=== PATIENT | female | born 1985 ===

== ENCOUNTER 2017-06-17 21:23 | Emergency (ER) | payer SELFPAY ==
[2017-06-17 21:23] VITALS: BMI 34.0
[2017-06-17 21:42] VITALS: RESP 16
[2017-06-18] MEDS ORDERED: Sodium Chloride 0.9% 1,000 ML IV STA (01:11)
--- NOTE | 2017-06-18 01:15 | ED PDOC ---
HPI: General Adult Time Seen by Provider: 06/18/17 00:47 Chief Complaint (Nursing): Flu-like Symptoms Chief Complaint (Provider): fever History Per: Patient History/Exam Limitations: no limitations Onset/Duration Of Symptoms: Days (2) Current Symptoms Are (Timing): Still Present Additional History Per: Patient Additional Complaint(s): 31 y/o female presents with fever x 2 days. Associated bodyaches, nasal congestion, cough. Patient also reports chest pain x 1 week. Denies ear pain, vomiting, shortness of breath, palpitations, abdominal pain, changes in bowel movements, urinary symptoms. Past Medical History Reviewed: Historical Data, Nursing Documentation, Vital Signs Vital Signs: Last Vital Signs Temp 101.7 F H 06/17/17 21:38 Pulse 99 H 06/18/17 03:53 Resp 16 06/18/17 03:15 BP 122/71 06/18/17 03:53 Pulse Ox 100 06/18/17 03:15 - Medical History PMH: [place]'s Disease - Family History Family History: States: No Known Family Hx - Home Medications Home Medications: Ambulatory Orders Medication Instructions Recorded Ondansetron ODT [Zofran ODT] 4 mg PO Q8 PRN #12 odt 02/04/14 Vit37/Iron/Folic Acid 1 PO DAILY 08/24/14 [Pnv Vitamins] Ibuprofen [Motrin Tab] 1 tab PO Q6 PRN #20 tab 06/18/17 Penicillin VK [Penicillin VK Tab] 500 mg PO BID #19 tab 06/18/17 - Allergies Allergies/Adverse Reactions: Allergies Allergy/AdvReac Type Severity Reaction Status Date / Time No Known Allergies Allergy Verified 02/04/14 10:15 Review of Systems ROS Statement: Except As Marked, All Systems Reviewed And Found Negative Constitutional: Positive for: Fever, Chills ENT: Positive for: Nose Congestion Cardiovascular: Positive for: Chest Pain Respiratory: Positive for: Cough Physical Exam - Reviewed Nursing Documentation Reviewed: Yes Vital Signs Reviewed: Yes - Physical Exam Appears: Positive for: Well, Non-toxic, No Acute Distress Head Exam: Positive for: ATRAUMATIC, NORMAL INSPECTION, NORMOCEPHALIC Skin: Positive for: Normal Color Eye Exam: Positive for: Normal appearance ENT: Positive for: Nasal Congestion, Pharyngeal Erythema, Tonsillar Exudate Cardiovascular/Chest: Positive for: Regular Rate, Rhythm Respiratory: Positive for: Normal Breath Sounds Gastrointestinal/Abdominal: Positive for: Normal Exam Back: Positive for: Normal Inspection Extremity: Positive for: Normal ROM Neurologic/Psych: Positive for: Alert, Oriented - Laboratory Results Result Diagrams: 06/18/17 01:28 06/18/17 01:28 - ECG ECG: Positive for: Viewed By Me (reviewed by ED attednging) ECG Rhythm: Positive for: Sinus Tachycardia O2 Sat by Pulse Oximetry: 98 - Radiology X-Ray: Viewed By Me X-Ray Interpretation: No Acute Disease - Progress ED Course And Treament: labs, flu, strep, chest xray, IV fluids, IV toradol On re-eval, patient states she is feeling better. Patient educated on findings, discharged with rx Penicillin VK (dose given in ED ), ibuprofen Follow up PMD 2-3 days. Return precautions given Disposition - Clinical Impression Clinical Impression: Strep throat, Atypical chest pain - Patient ED Disposition Is Patient to be Admitted: No Counseled Patient/Family Regarding: Studies Performed, Diagnosis, Need For Followup, Rx Given - Disposition Referrals: [facility] [Outside] Disposition: Routine/Home Disposition Time: 03:59 Condition: IMPROVED Prescriptions: Ibuprofen [Motrin Tab] 1 tab PO Q6 PRN #20 tab PRN Reason: Fever >100.4 F Penicillin VK [Penicillin VK Tab] 500 mg PO BID #19 tab Instructions: Chest Pain (ED), Strep Throat (ED) Forms: [employer] ([place]) Print Language: ENGLISH
[2017-06-18 01:31] LABS: BASO # 0.1 K/uL (0.0-0.2); BASO % 0.9 % (0.0-2.0); EOS % 0.1 % (0.0-4.0); HEMOGLOBIN 13.7 g/dL (12.0-16.0); LYMPH # 2.2 K/uL (1.0-4.3); LYMPH % 15.9 % (20.0-40.0); MEAN CELL VOLUME 82.4 fl (81.0-99.0); MEAN CORPUSCULAR HEMOGLOBIN 26.8 pg (27.0-31.0); MEAN CORPUSCULAR HGB CONC 32.5 g/dL (33.0-37.0); MEAN PLATELET VOLUME 9.3 fl (7.2-11.7); MONO # 0.8 K/uL (0.0-0.8); MONO % 5.8 % (0.0-10.0); NEUT # 10.5 K/uL (1.8-7.0); NEUT % 77.3 % (50.0-75.0); RBC 5.13 Mil/uL (3.80-5.20); RED CELL DISTRIBUTION WIDTH 14.4 % (11.5-14.5); WHITE BLOOD COUNT 13.5 K/uL (4.8-10.8)
[2017-06-18 01:39] LABS: ALB/GLOB RATIO 1.2 (1.0-2.1); ALBUMIN 4.7 g/dL (3.5-5.0); CALCIUM 9.3 mg/dL (8.4-10.2); GFR AFRICAN-AMERICAN > 60; GFR NON-AFRICAN AMERICAN > 60
[2017-06-18 01:40] LABS: ALT/SGPT 25 U/L (9-52); AST/SGOT 24 U/L (14-36); BLOOD UREA NITROGEN 9 mg/dl (7-17)
[2017-06-18 03:53] VITALS: BP 122/71; PULSE 99
[2017-06-18 03:58] VITALS: TEMP 98.5
[2017-06-18 03:59] VITALS: O2SAT 98
--- NOTE | 2017-06-18 08:32 | CARD ---
APPROVED REPORT EKG Measurement Heart [id number] [id number] <Conclusion> Sinus tachycardia with short [place] ST & T wave abnormality, consider inferior ischemia Abnormal ECG
== END 2017-06-18 04:15 | disposition home or self-care (01) ==
LOC: H.ER 21:23
DX: J02.0 Streptococcal pharyngitis (principal)
CPT/HCPCS: 71046; 80053; 81025; 84484; 85025; 86308; 87430; 87804; 93005; 96360; 99283; J1885; J7040

== ENCOUNTER 2018-10-14 10:40 | Emergency (ER) | payer SELFPAY ==
[2018-10-14 10:59] VITALS: BMI 24.9
[2018-10-14 11:01] VITALS: RESP 16; O2SAT 100
--- NOTE | 2018-10-14 13:29 | ED PDOC ---
Upper Extremity Pain/Injury Time Seen by Provider: 10/14/18 12:29 Chief Complaint (Nursing): Back Pain Chief Complaint (Provider): neck pain History Per: Patient History/Exam Limitations: no limitations Onset/Duration Of Symptoms: Days (x4) Current Symptoms Are (Timing): Still Present Additional Complaint(s): 32 year old female presents to the emergency department with a complaint of diffuse neck pain with increasing pain with movement of her left arm for 4 days. Patient states that symptoms started from the left axillary/breast area which resolved with Tylenol use, however, pain radiated diffusely to her neck, shoulders, and chest wall. She denies any fever, chills, cough, or shortness of breath. Past Medical History Reviewed: Historical Data, Nursing Documentation, Vital Signs Vital Signs: Last Vital Signs Temp 98.5 F 10/14/18 11:00 Pulse 71 10/14/18 11:00 Resp 16 10/14/18 11:00 BP 121/82 10/14/18 11:00 Pulse Ox 100 10/14/18 11:00 Primary Care Provider: FAMILY PROVIDER,NO - Medical History PMH: [place]'s Disease - Family History Family History: States: Unknown Family Hx - Home Medications Home Medications: Ambulatory Orders Medication Instructions Recorded Ondansetron ODT [Zofran ODT] 4 mg PO Q8 PRN #12 odt 02/04/14 Vit37/Iron/Folic Acid 1 PO DAILY 08/24/14 [Pnv Vitamins] Ibuprofen [Motrin Tab] 1 tab PO Q6 PRN #20 tab 06/18/17 Penicillin VK [Penicillin VK Tab] 500 mg PO BID #19 tab 06/18/17 Cyclobenzaprine [Cyclobenzaprine 10 mg PO Q8H PRN #10 tab 10/14/18 HCl] Naproxen 500 mg PO Q12H PRN #30 tab 10/14/18 - Allergies Allergies/Adverse Reactions: Allergies Allergy/AdvReac Type Severity Reaction Status Date / Time No Known Allergies Allergy Verified 10/14/18 12:49 Review of Systems ROS Statement: Except As Marked, All Systems Reviewed And Found Negative Constitutional: Negative for: Fever, Chills Respiratory: Negative for: Cough, Shortness of Breath Musculoskeletal: Positive for: Neck Pain (bilateral), Shoulder Pain (bilateral), Other (left axillary, breast, and chest wall pain) Physical Exam - Reviewed Nursing Documentation Reviewed: Yes Vital Signs Reviewed: Yes - Physical Exam Appears: Positive for: No Acute Distress, Uncomfortable Head Exam: Positive for: ATRAUMATIC, NORMAL INSPECTION, NORMOCEPHALIC Skin: Positive for: Normal Color. Negative for: Rash Eye Exam: Positive for: Normal appearance ENT: Positive for: Normal ENT Inspection. Negative for: Pharyngeal Erythema Neck: Positive for: Normal, Painless ROM, Supple Cardiovascular/Chest: Positive for: Regular Rate, Rhythm, Other (left axillary to chest wall tenderness). Negative for: Chest Non Tender Respiratory: Positive for: Normal Breath Sounds. Negative for: Respiratory Distress Neurological/Psych: Positive for: Awake, Alert, Normal Tone, Oriented. 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 Recommendation for warm compresses to affected area for, minimally, twice daily. Work note for 2 days given to patient in order to provide sufficient resting period. Patient is medically stable and requires no further treatment in the ED at this time. Patient will be discharged home with Rx for Cyclobenzaprine HCL and Naproxen. Risks and benefits regarding pain control medications discussed with patient. Confirms that she will not be driving or operating heavy machinery with use. Counseling was provided and all questions were answered regarding diagnosis. Patient was provided with information about following up with [facility]. There is agreement to discharge plan. Return to ED or follow up with PCP if symptoms persist or worsen. Clinical Impression: trapezius muscle strain Scribe Attestation: Documented by Vicki Vo-Masterson, acting as a scribe for Esther Paredes APN. Provider Scribe Attestation: All medical record entries made by the Scribe were at my direction and personally dictated by me. I have reviewed the chart and agree that the record accurately reflects my personal performance of the history, physical exam, medical decision making, and the department course for this patient. I have also personally directed, reviewed, and agree with the discharge instructions and disposition. Disposition - Clinical Impression Clinical Impression: Trapezius muscle strain - Patient ED Disposition Is Patient to be Admitted: No Counseled Patient/Family Regarding: Diagnosis, Need For Followup, Rx Given - Disposition Referrals: [facility] [Outside] Disposition: Routine/Home Disposition Time: 14:30 Condition: GOOD Prescriptions: Cyclobenzaprine [Cyclobenzaprine HCl] 10 mg PO Q8H PRN #10 tab PRN Reason: Muscle Spasm Naproxen 500 mg PO Q12H PRN #30 tab PRN Reason: Pain, Moderate (4-7) Instructions: Muscle Strain (DC) Forms: [employer] ([place]ic), [facility] ED School/Work Excuse Print Language: [place] - POA Present On Arrival: None
[2018-10-14 15:29] VITALS: BP 116/76; PULSE 70; TEMP 98.7
== END 2018-10-14 15:23 | disposition home or self-care (01) ==
LOC: H.ER 10:40
DX: M54.2 Cervicalgia (principal)
CPT/HCPCS: 81025; 96372; 99282; J1885